=== PATIENT | female | born 1995 | race Caucasian/White ===

== ENCOUNTER 2017-01-14 11:08 | Emergency (ER) | payer BC, MEDICAID ==
[~2017-01-14] VITALS: Ht 165.1 cm; Wt 60.9 kg
[2017-01-14 11:10] VITALS: BP 110/67
[2017-01-14] MEDS ORDERED: LAMO100T5 PO (12:25)
== END 2017-01-14 12:32 | disposition home or self-care (01) ==
LOC: ED 12:27
DX: S16.1XXA Strain of muscle, fascia and tendon at neck level, initial encounter (principal); X58.XXXA Exposure to other specified factors, initial encounter; Y93.89 Activity, other specified; Y99.8 Other external cause status; Y92.89 Other specified places as the place of occurrence of the external cause
CPT/HCPCS: 72125

== ENCOUNTER 2017-05-31 21:07 | Emergency (ER) | payer MEDICAID ==
[~2017-05-31] VITALS: Ht 165.1 cm; Wt 57.5 kg
[~2017-05-31 21:07] MED LIST: LAMO100T5 PO
[2017-05-31] MEDS ORDERED: LORazepam 1MG TABLET PO ONE (22:00)
[2017-05-31] MEDS ORDERED: LORazepam 1MG TABLET ONE (22:05)
[2017-05-31 23:53] VITALS: BP 105/53
== END 2017-05-31 23:56 | disposition home or self-care (01) ==
LOC: ED 23:50
DX: R06.00 Dyspnea, unspecified (principal); F41.1 Generalized anxiety disorder; R06.4 Hyperventilation; J45.909 Unspecified asthma, uncomplicated
CPT/HCPCS: 36415; 71020; 85379; 93005; 99285

== ENCOUNTER 2017-09-20 17:19 | Emergency (ER) | payer SELFPAY ==
[~2017-09-20] VITALS: Ht 167.6 cm; Wt 55.7 kg
[2017-09-20] MEDS ORDERED: ONDANSETRON ODT 4 MG PO ONE (17:30)
[2017-09-20] MEDS ORDERED: ONDANSETRON ODT 4 MG ONE (17:43)
[2017-09-20] MEDS ORDERED: FAMOTIDINE 20 MG/2 ML ONE (17:56)
[2017-09-20] MEDS ORDERED: LORazepam 2 MG/ML, 1ML ONE (17:56)
[2017-09-20] MEDS ORDERED: FAMOTIDINE 20 MG/2 ML IVP ONE (18:00)
[2017-09-20] MEDS ORDERED: SODIUM CHLORIDE 0.9% 1,000ML IVBOLUS ONE (18:00)
[2017-09-20] MEDS ORDERED: ONDANSETRON 2MG/ML, 2ML IVPush ONE (18:00)
[2017-09-20] MEDS ORDERED: LORazepam 2 MG/ML, 1ML IVPush ONE (18:00)
[2017-09-20] MEDS ORDERED: SODIUM CHLORIDE FLUSH 10ML SYR IVF ONE (18:00)
[2017-09-20 18:02] LABS: HEMATOCRIT 47.2 % (34.6-47.8); WHITE BLOOD COUNT 11.4 x10^3/uL (4.5-13.2)
[2017-09-20 18:12] LABS: ASPARTATE AMINO TRANSFERASE 17 U/L (15-37); BLOOD UREA NITROGEN 14 mg/dL (7-18)
[2017-09-20 18:50] VITALS: BP 105/55
[2017-09-20] MEDS ORDERED: ACETAMINOPHEN 500 MG TABLET ONE (19:08)
== END 2017-09-20 19:04 ==
LOC: ED 18:30
DX: R11.2 Nausea with vomiting, unspecified (principal); E86.0 Dehydration; K22.6 Gastro-esophageal laceration-hemorrhage syndrome
CPT/HCPCS: 36415; 71020; 80053; 83690; 84703; 85025; 96374; 96375; 99285; J2060; J7030; Q0162; S0028

== ENCOUNTER 2021-06-18 14:02 | Emergency (ER) | payer MEDICAID ==
[~2021-06-18] VITALS: Ht 165.1 cm; Wt 64.4 kg
[2021-06-18 14:22] VITALS: BP 122/67
[2021-06-18] MEDS ORDERED: LIDOCAINE-MPF 1%, 5ML INFIL ONE (14:30)
--- NOTE | 2021-06-18 15:11 | NUR ---
PT TO ROOM FROM LOBBY
--- NOTE | 2021-06-18 15:17 | NUR ---
MULTIPLE DOG BITES AND SCRATCHES TO BOTH HANDS. LEFT ELBOW, AND LEFT ANKLE TODAY. RIGHT INDEX FINGER WITH SMALL LAC, BLEEDING CONTROLLED. PT STATES FINGER IS NUMB.
[2021-06-18] MEDS ORDERED: BACITRACIN ZINC OINT 500U/GM, 0.9 GM ONE (15:26)
== END 2021-06-18 16:26 | disposition home or self-care (01) ==
LOC: ED 14:32
DX: S61.451A Open bite of right hand, initial encounter (principal); S61.250A Open bite of right index finger without damage to nail, initial encounter; S61.252A Open bite of right middle finger without damage to nail, initial encounter; W54.0XXA Bitten by dog, initial encounter; Y93.89 Activity, other specified; Y92.830 Public park as the place of occurrence of the external cause; Y99.8 Other external cause status
CPT/HCPCS: 99283